=== PATIENT | male | born 1985 | race Caucasian/White ===

== ENCOUNTER 2023-12-09 22:54 | Emergency (ER) | payer BC, SELFPAY ==
[2023-12-09 23:04] VITALS: BP 130/91
[2023-12-10 01:35] VITALS: BP 144/96; BMI 43.3
[2023-12-10 02:00] VITALS: BP 146/100
[2023-12-10 02:09] LABS: Urine Albumin Negative (Neg - Trace); Urine Bilirubin Negative (Negative); Urine Character Clear (Clear); Urine Color Yellow; Urine Glucose Negative (Negative); Urine Ketone Negative (Negative); Urine Leukocyte Trace (Negative); Urine Nitrite Negative (Negative); Urine Occult Blood Negative (Negative); Urine Specific Gravity 1.015 (<1.030); Urine Urobilinogen Negative (Neg - 1+)
[2023-12-10 02:09] LABS: % Basophils 0.9 % (0-2); % Eosinophils 3.1 % (0-6); % Immature Granulocytes 0.1 % (0-0.5); % Lymphocytes 32.6 % (20.5-51.1); % Monocytes 7.4 % (1.7-9.3); % Neutrophils 55.9 % (42.2-75.2); Absolute Basophils 0.1 10^3/uL (0-0.2); Absolute Eosinophils 0.3 10^3/uL (0-0.7); Absolute Lymphocytes 3.5 10^3/uL (1.2-3.4); Absolute Monocytes 0.8 10^3/uL (0.1-0.6); Absolute Neutrophils 5.9 10^3/uL (1.4-6.5); Hematocrit 44.5 % (39.0-52.0); Hemoglobin 15.8 g/dL (13.0-18.0); Mean Corp Hgb Conc. 35.5 g/dL (33.0-37.0); Mean Corpuscular Hgb 30.6 pg (27.0-31.0); Mean Corpuscular Volume 86.2 fL (80.0-94.0); Mean Platelet Volume 10.8 fL (7.4-10.4); Nucleated Red Blood Cells % 0 % (-); Platelet Count 227 10^3/uL (130-400); Red Blood Cell Count 5.16 10^6/uL (4.70-6.10); Red Cell Dist. Width 12.6 % (11.5-14.5); White Blood Cell Count 10.6 10^3/uL (4.8-10.8)
[2023-12-10 02:32] LABS: ALT (SGPT) 41 U/L (0-50); AST (SGOT) 31 U/L (17-59); Albumin 4.3 g/dl (3.5-5.0); Alkaline Phosphatase 83 U/L (38-126); Blood Urea Nitrogen 20 mg/dl (9-20); Carbon Dioxide 24 mmol/L (22-30); Chloride 101 mmol/L (98-107); Estimated Creatinine Clearance > 125 ml/min; Glucose 98 mg/dl (70-99); Sodium 137 mmol/L (135-145); Total Bilirubin 1.2 mg/dl (0.2-1.3); eGFR > 60.00
[2023-12-10 02:42] LABS: Troponin I < 0.012 ng/ml
[2023-12-10 03:00] VITALS: BP 151/92
[2023-12-10 03:01] LABS: Urine Squamous Cell 0-2 /LPF (Few)
[2023-12-10 03:02] LABS: Urine Bacteria Few (Negative); Urine Red Blood Cell 0-2 /HPF (0-2)
--- NOTE | 2023-12-10 03:09 | ED.GENMED ---
History of Present Illness
General
Chief Complaint: Chest Pain
Source: patient
Exam Limitations: none
Time Seen by Provider: 12/10/23 02:41
Nursing documentation reviewed up to this point in time: agreed with
Travel History
Have you had any contact with someone who has COVID-19?: No
Do you have any symptoms of coronavirus? Fever > 100 degrees, chills, cough, shortness of breath, sore throat, loss of taste or smell, muscle aches, or headache?: No
History of Present Illness
History of Present Illness:
38-year-old male with a past medical history of hyperlipidemia, obesity who presents to the emergency room for evaluation of chest pain. Patient reports onset of symptoms 3 days ago and they have been intermittent since that time. He has not
noticed any clear triggers�'they seem random.' There is no exertional component and in fact he feels like it may be better when he is active. He describes a sharp pain in the left chest that may last for a minute or 2�he says frequency is variable
sometimes a few minutes between episodes sometimes it will be a few hours between episodes. Denies any significant amount of shortness of breath. No coughing, fevers, chills recently or URI type symptoms. He denies any nausea, vomiting,
diaphoresis. He denies any known history of cardiac issues or family history of early cardiac . Denies smoking, alcohol, drug use. He denies similar chest pains in the past. He did mention some 'kidney pain' in triage�he says he has had
some mild pain across the low back for the past day or 2. Denies any urinary symptoms.
Review of Systems
Review of Systems
All Other Systems: ROS reviewed and negative except as documented in HPI and ROS
Constitutional: Denies fever or chills
EENT: Denies sore throat or runny nose
Respiratory: Denies cough or trouble breathing
Cardiac: Reports chest pain; Denies diaphoresis or palpitations
ABD/GI: Denies abdominal pain, nausea or vomiting
: Denies dysuria, frequency or flank pain
Musculoskeletal: Reports back pain; Denies neck pain
Neurological: Denies headache, weakness or numbness
Phy Exam
Physical Exam
Physical Exam:
General: Awake, alert, oriented x3; no acute distress
Head: Normocephalic, atraumatic
Eyes: Conjunctiva normal, sclera anicteric
Throat: Airway intact, handling secretions
Neck: Trachea midline, supple without meningismus
Lungs: Clear to auscultation bilaterally, no wheezing, rales, rhonchi
Heart: Regular rate and rhythm, no murmurs, gallops, or rubs
Abd: Soft, non distended, nontender to deep palpation with no abdominal masses
Back: No CVA tenderness or signs of trauma to the back or flank
Neuro: Cranial nerves grossly intact, speech fluid
Skin: no rash
Extremities: No edema in extremities, equal pulses in all extremities
Scores
Heart Failure Risk
Heart Failure Risk Score: Not Applicable
Heart Score for Chest Pain Patients
STEMI patient?: No
History: Slightly or Non-Suspicious
ECG: Normal
Age: </= 45 years
Risk Factors: 1 or 2 Risk Factors
Troponin: </= Normal Limit
Heart Score for Chest Pain Patients: 1
Heart Score Risk: 2.5% MACE over next 6 weeks
PE Wells Score
Symptoms of DVT: No
No alternative diagnosis better explains the illness: No
Tachycardia with pulse > 100: No
Immobilization (>=3 days) or surgery within previous 4 weeks: No
Prior history of DVT or pulmonary embolism: No
Presence of hemoptysis: No
Presence of malignancy: No
Pulmonary Embolism Risk Score: 0
Probability of PE: Pt is low risk
Withdrawal Assessment of Alcohol
Withdrawal Assessment Completed?: Not applicable
Course
Orders/Labs/Results
Orders:
Orders
12/09/23 22:57
Electrocardiogram (*1) Urgent
Reason for Study: Chest Pain
EKG- Treatment ONCE
12/10/23 01:46
Cardiac Monitoring- Treatment ONCE
IV Insert/Care/Rem.- Treatment PRN
Pulse Ox/spot Check [RESP] Urgent
Quantity: 1
Special Instructions: ON ROOM AIR
12/10/23 01:54
Complete Blood Count/With Diff Urgent
Comprehensive Metabolic Panel Urgent
Troponin I Urgent
12/10/23 02:00
Urinalysis Reflex To Culture Urgent
Date Specimen was Collected: 12/10/23
Time Specimen was Collected: 01:56
Urine Microscopic Reflex Cult Urgent
12/10/23 02:42
CR Chest - 2 Views Urgent
Comment:
Reason For Exam: cp
12/10/23 02:51
D-Dimer Urgent
Abnormal Lab Results
12/10/23 12/10/23
01:54 02:00
MPV 10.8 H fL
(7.4-10.4)
Absolute Lymphs (auto) 3.5 H 10^3/uL
(1.2-3.4)
Absolute Monos (auto) 0.8 H 10^3/uL
(0.1-0.6)
Leukocyte Esterase Rfl Trace A
(Negative)
Urine Bacteria (Reflex) Few A
(Negative)
12/10/23 01:54
12/10/23 01:54
Vital Signs
Initial and Last Documented VS:
Initial Vital Signs
Temp Pulse Resp BP Pulse Ox
37.0 C 92 18 130/91 99
12/09/23 23:04 12/09/23 23:04 12/09/23 23:04 12/09/23 23:04 12/09/23 23:04
Last Documented Vital Signs
Temp Pulse Resp BP Pulse Ox
37.0 C 84 24 146/94 95
12/09/23 23:04 12/10/23 04:00 12/10/23 04:00 12/10/23 04:00 12/10/23 04:00
MDM/Problems Addressed
Differential Diagnosis Includes:
Costochondritis, GERD, anxiety, pericarditis, ACS, PE, pneumothorax, pneumonia
MDM/Problems Addressed:
38-year-old male presents for evaluation of intermittent atypical chest pain for the past few days. No exertional component. Vital signs normal. Exam as above. EKG shows no STEMI. Plan to place an IV check labs including CBC and CMP, D-dimer,
troponin. He did mention some vague low back pain in triage will check urinalysis for any signs of blood or infection. Check chest x-ray. Will monitor closely reassess after the above.
Labs reviewed: CBC unremarkable, CMP no clinically significant abnormalities. Troponin negative x 1 and with symptoms for the past 3 days this is sufficient to rule out acute [place]. D-dimer negative. Chest x-ray reviewed by me shows no acute
disease. Urinalysis negative for blood or infection. At this point low suspicion for emergent pathology as cause of patient's chest pain based on history, exam, negative workup as above. No clear indication for admission at this point I think he
is medically stable for discharge and follow-up with his primary doctor as an outpatient. He feels very comfortable with this plan. Spoke about return precautions all questions answered.
Chronic conditions affecting care:
Hyperlipidemia, obesity�higher risk for heart disease
*Radiology
Radiology exam reviewed: preliminary read by ED provider (No acute disease on chest x-ray)
*Pulse Oximetry
Patient hypoxic: no
*EKG
Interpreted by ED Provider?: Yes
Heart Rate: 87
Rate: normal
Rhythm: sinus
[place]: normal axis
Interval: normal interval
QRS Pattern: normal QRS
Ischemia: no ischemia
*Critical Care Note
Total Time (30-74mins, 75-104mins- exclusive of procedures): Not Applicable
Data Reviewed
Source: patient and records
ED Attending Note
-
Portions of this chart may have been created with voice recognition software.� Occasional wrong word or��sound alike� substitutions may have occurred due to the inherent limitations of voice recognition software.
Discharge Plan
Departure
Patient Disposition: Home (Routine Discharge)
Date of Disposition: 12/10/23
Time of Disposition: 04:36
Patient with high blood pressure during this ER visit?: Yes
Discharge Problem:
Chest pain
Instructions: Chest Pain PCP Follow Up
Referrals:
Luis Manuel Cardenas MD [Family Provider] - Follow up in 2-3 days
Activity Restrictions/Additional Instructions:
Thank you for visiting the Emergency Department at [facility].
1. Please schedule a follow up appointment as directed. Call first thing tomorrow morning to make an appointment.
2. If indicated, please take your medications as instructed and indicated on discharge paperwork.
3. If any of your symptoms do not improve, or persist, or become more severe within 6-12 hours, please return to the emergency department for further care.
4. Please return to the emergency department if you develop a headache, neck pain/stiffness, fever greater than 100.4F, chest pain, shortness of breath, persistent nausea, vomiting, slurred speech, difficulty walking, numbness/tingling, weakness,
signs of infection or any other symptoms that are worrisome to you.
Please call [phone] if you have any questions.
Interventions
Interventions:
*Risk Screen - Suicide Last Done: 12/09/23 23:04
*General Assessment Last Done: 12/09/23 23:04
*Neglect/Abuse Screening Last Done: 12/09/23 23:04
ED- Fall Risk Assessment Last Done: 12/10/23 01:44
*ED COVID-19 Vaccine History Last Done: 12/09/23 23:04
ED- Cardiac Assessment Last Done: 12/10/23 01:44
Discharge Date and Time
Print Language: POLISH
[2023-12-10 03:46] LABS: D-Dimer < 0.27 ug/mlFEU (0.00-0.50)
[2023-12-10 04:00] VITALS: BP 146/94
== END 2023-12-10 04:58 | disposition home or self-care (01) ==
LOC: EMR 22:54
PROVIDERS: EMERGENCY PHYSICIAN Emergency Medicine; FAMILY PHYSICIAN Internal Medicine Cardiovascular Disease
DX: R07.89 Other chest pain (principal); E78.00 Pure hypercholesterolemia, unspecified; E66.9 Obesity, unspecified
CPT/HCPCS: 99283; 71046; 80053; 81003; 81015; 84484; 85025; 85379; 93005